=== PATIENT | female | born 1995 | race Caucasian/White ===

== ENCOUNTER 2019-08-24 06:48 | Emergency (ER) | payer OTHER, MEDICAID, SELFPAY ==
[2019-08-24 06:51] VITALS: BMI 36.8
[2019-08-24 06:56] VITALS: BP 143/89; PULSE 118; RESP 18; TEMP 36.8; O2SAT 100
--- NOTE | 2019-08-24 07:01 | ED_ITS ---
HPI - General Adult General: Chief complaint: General Medical Stated complaint: Chest Pain Time Seen by Provider: 08/24/19 07:01 History of Present Illness: HPI narrative: 23-year-old female presents after 2 days of what she describes as just not feeling well states her body aches all over she denies any cough occasionally she has some shortness of breath. She states she has chronic intermittent abdominal pain that has not really changed in character at all. She does take medicine for it but does not recall the name. She denies any vomiting no hematochezia or melena she has had a few loose stools last week but that seems to have resolved. She denies any productive cough. No dysuria urgency or frequency. Onset (ago): day(s) (2) Location: chest, abdomen, upper extremity and lower extremity Radiation: non-radiation Severity: moderate Quality: other (Vague discomfort patient has difficulty characterizing) Pain Consistency: intermittent Relieving factors: none Associated symptoms: Reports cough, dyspnea (Mild), malaise, nausea and short of breath; Deny chest pain, fevers/chills, headache(s), rash or vomiting Treatments prior to arrival: none Review of Systems Const: Reports: malaise ENMT: Denies: throat pain, ear pain, nasal discharge or nasal congestion Card: Denies: chest pain, edema, shortness of breath on exertion or shortness of breath when lying down Resp: Reports: shortness of breath (Mild) GI: Reports: nausea; Denies: vomiting : Denies: flank pain, difficulty urinating, painful urination, urinary frequency or urinary urgency Skin/Breast: Denies: rash or itching Neuro: Denies: headache PFSH ED PFSH: Statuses (acute, chronic, etc) shown below reflect problem list status as previously entered and may not be historically accurate Surgical History History of dental surgery (Acute) Social History Smoking and tobacco status: never smoked Female Reproductive History: Date of last menstrual period: 04/02/16 Physical Exam Const: COMMON NORMALS: no apparent distress GENERAL APPEARANCE: cooperative and comfortable ORIENTATION/CONSCIOUSNESS: Yes awake, Yes oriented to person, Yes oriented to place and Yes oriented to time HENMT: COMMON NORMALS: normocephalic, head/scalp atraumatic, hearing grossly normal bilaterally, external ears normal, EAC's normal, TM's normal bilaterally, nasal mucous membranes and turbinates normal, moist oral mucous membranes and oropharynx normal HEAD & SCALP: normocephalic and atraumatic NOSE: nasal mucous membranes and turbinates normal EXTERNAL EAR: Yes external ears normal EXTERNAL AUDITORY CANAL: EAC's normal TYMPANIC MEMBRANE: TM's normal b ilaterally Eye: COMMON NORMALS: PERRL, EOMs intact bilaterally, conjunctivae normal and no scleral icterus CONJUNCTIVA: Yes conjunctivae normal PUPIL: Yes PERRL Neck/C-Spine: COMMON NORMALS: full ROM, no lymphadenopathy, supple and no JVD Lymph: LYMPHATIC: no lymphadenopathy noted and no lymphedema noted Resp: COMMON NORMALS: normal respiratory effort, no retractions, no use of accessory muscles and clear to auscultation bilaterally AUSCULTATION: clear to auscultation bilaterally Cardio: COMMON NORMALS: no JVD, regular rate, regular rhythm and no murmurs RATE: regular rate RHYTHM: regular rhythm GI: COMMON NORMALS: soft to palpation and no hepatosplenomegaly AUSCULTATIO N: Yes normoactive bowel sounds PALPATION: Yes soft, No tender, No guarding and Yes no hepatosplenomegaly Extremity: COMMON NORMALS: normal to inspection, normal capillary refill, no clubbing, cyanosis or edema, no calf tenderness and no pedal edema Neuro: SENSORIUM/ORIENTATION: Yes oriented to person, Yes oriented to place and Yes oriented to time Skin: COMMON NORMALS: no rashes or lesions noted GENERAL SKIN EXAM: no rashes or lesions noted Course Vital Signs: Vital signs: Vital Signs Temperature 98.3 F 08/24/19 06:56 Pulse Rate 118 H 08/24/19 08:59 Respiratory Rate 16 08/24/19 08:59 Blood Pressure 127/78 08/24/19 08:59 Pulse Oximetry 97 08/24/19 08:59 [facility] - General Adult Lab Data: Labs: Lab Results 08/24/19 08/24/19 08/24/19 Range/Units 07:02 07:02 07:24 WBC 6.4 (4.0-10.0) 10^3/ uL RBC 4.92 (4.1-5.3) 10^6/u L Hgb 14.7 (11.5-15.3) g/dL Hct 44.1 (37.0-47.0) % MCV 89.6 (81-99) fL MCH 29.9 (28.0-34.0) pg MCHC 33.3 (30.0-36.0) g/dL RDW 11.8 L (12.1-15.1) % Plt Count 369 (130-400) 10^3/c mm MPV 9.4 (7.4-10.4) fL Neut % (Auto) 47.6 % Lymph % (Auto) 38.9 % [place] % (Auto) 8.2 % Eos % (Auto) 4.4 % Baso % (Auto) 0.6 % Neut # (Auto) 3.0 (1.8-7.7) 10^3/u L Lymph # (Auto) 2.5 (0.8-4.8) 10^3/u L [place] # (Auto) 0.5 (0.2-0.9) 10^3/u L Eos # (Auto) 0.3 (0.0-0.8) 10^3/u L Baso # (Auto) 0.0 (0.0-0.1) 10^3/u L Nucleated RBC % (a uto) 0 % Nucleated RBCs # 0.0 /100WBC Sodium 138 (136-145) mmol/L Potassium 3.7 (3.5-5.1) mmol/L Chloride 101 (98-107) mmol/L Carbon Dioxide 22 (22-29) mmol/L Anion Gap 18.7 (5-19) BUN 12 (6-20) mg/dL Creatinine 0.6 (0.5-0.9) mg/dL GFR Calculation 125.0 (90-130) mL/min Glucose 120 H (74-109) mg/dL Calcium 10.6 H (8.6-10.0) mg/Dl Total Bilirubin 0.5 (0.15-1.2) mg/dL AST 37 H (0-32) U/L ALT 77 H (0-33) U/L Alkaline Phosphata se 64 (35-105) IU/L Total Protein 7.5 (6.6-8.7) g/dL Albumin 5.4 H (3.5-5.2) g/dL Globulin 2.1 (1.3-4.6) g/dL HCG, Qual (Negative) Urine Color (Yellow) Urine Appearance (CLEAR) Urine pH (5-7) Ur Specific Gravit y (1.005-1.030) Urine Protein (Negative) Urine Glucose (UA) (Normal) Urine Ketones (Negative) Urine Occult Blood (Negative) Urine Nitrate (Negative) Urine Bilirubin (NEGATIVE) Urine Urobilinogen (Negative) mg/dL Ur Leukocyte [place] ase (Negative) Influenza Type A A g Negative (Negative) POC Influenza B Ag Negative (Negative) 08/24/19 08/24/19 Range/Units 07:53 07:53 WBC (4.0-10.0) 10^3/ uL RBC (4.1-5.3) 10^6/u L Hgb (11.5-15.3) g/dL Hct (37.0-47.0) % MCV (81-99) fL MCH (28.0-34.0) pg MCHC (30.0-36.0) g/dL RDW (12.1-15.1) % Plt Count (130-400) 10^3/c mm MPV (7.4-10.4) fL Neut % (Auto) % Lymph % (Auto) % [place] % (Auto) % Eos % (Auto) % Baso % (Auto) % Neut # (Auto) (1.8-7.7) 10^3/u L Lymph # (Auto) (0.8-4.8) 10^3/u L [place] # (Auto) (0.2-0.9) 10^3/u L Eos # (Auto) (0.0-0.8) 10^3/u L Baso # (Auto) (0.0-0.1) 10^3/u L Nucleated RBC % (a uto) % Nucleated RBCs # /100WBC Sodium (136-145) mmol/L Potassium (3.5-5.1) mmol/L Chloride (98-107) mmol/L Carbon Dioxide (22-29) mmol/L Anion Gap (5-19) BUN (6-20) mg/dL Creatinine (0.5-0.9) mg/dL GFR Calculation (90-130) mL/min Glucose (74-109) mg/dL Calcium (8.6-10.0) mg/Dl Total Bilirubin (0.15-1.2) mg/dL AST (0-32) U/L ALT (0-33) U/L Alkaline Phosphata se (35-105) IU/L Total Protein (6.6-8.7) g/dL Albumin (3.5-5.2) g/dL Globulin (1.3-4.6) g/dL HCG, Qual Negative (Negative) Urine Color Yellow (Yellow) Urine Appearance Clear (CLEAR) Urine pH 5.0 (5-7) Ur Specific Gravit y 1.010 (1.005-1.030) Urine Protein Neg (Negative) Urine Glucose (UA) Norm (Normal) Urine Ketones Negative (Negative) Urine Occult Blood Neg (Negative) Urine Nitrate Negative (Negative) Urine Bilirubin Neg (NEGATIVE) Urine Urobilinogen Norm (Negative) mg/dL Ur Leukocyte [place] ase Negative (Negative) Influenza Type A A g (Negative) POC Influenza B Ag (Negative) Discharge Plan Discharge Patient Disposition: Home, Self-Care Clinical Impression: Gastroenteritis Condition: Stable Prescriptions: New promethazine 12.5 mg tablet 12.5 mg PO Q6H PRN (Reason: nausea and vomiting) Qty: 10 RF: 0 No Action dicyclomine 20 mg tablet 20 mg PO QID PRN (Reason: Diarrhea) RF: 0 Discharge Orders: Discharge Order (Routine); Ordered 08/24/19 Ordered By: Con Stout Referrals: [facility] [Other] Patient Instructions: Chest Pain - Noncardiac, Promethazine (By mouth) Activity Restrictions/Additional Instructions: Return if worsens advance diet slowly push fluids if not improving follow-up either in the emergency room or with your primary care doctor Interventions: ED Discharge Assessment Last Done: 08/24/19 08:59 Discharge Date/Time: 08/24/19 09:06 Coding Level of Care Code ED Supervisor [place] for Isidro James Exam Problem Focused
--- NOTE | 2019-08-24 07:08 | XR_ITS ---
WS: [id number] PORTABLE CHEST HISTORY: dyspnea COMPARISON: None available. Lungs are clear and well expanded. No pleural effusion or pneumothorax. Cardiac size: Normal. Mediastinum/Aorta: Normal mediastinum. No osseous abnormality seen. XR/XR chest 1V portable [id number] IMPRESSION: Unremarkable portable chest.
[2019-08-24 07:16] LABS: Basophils % 0.6 %; Eosinophils # 0.3 10^3/uL (0.0-0.8); Eosinophils % 4.4 %; Hematocrit 44.1 % (37.0-47.0); Hemoglobin 14.7 g/dL (11.5-15.3); Lymphocytes # 2.5 10^3/uL (0.8-4.8); Lymphocytes % 38.9 %; Mean Corpuscular HGB Conc 33.3 g/dL (30.0-36.0); Mean Corpuscular Hemoglobin 29.9 pg (28.0-34.0); Mean Corpuscular Volume 89.6 fL (81-99); Mean Platelet Volume 9.4 fL (7.4-10.4); Monocytes # 0.5 10^3/uL (0.2-0.9); Monocytes % 8.2 %; Neutrophils % 47.6 %; Nucleated Red Blood Cells % 0 %; Platelet Count 369 10^3/cmm (130-400); Red Blood Count 4.92 10^6/uL (4.1-5.3); Red Cell Distribution Width 11.8 % (12.1-15.1); White Blood Count 6.4 10^3/uL (4.0-10.0)
--- NOTE | 2019-08-24 07:24 | PC.NURSE ---
Xray performed at bedside. Flu swab obtained.
[2019-08-24] MEDS: sodium chloride 0.9% 1,000 ML 999 ML IV (07:25)
[2019-08-24 07:26] VITALS: BP 123/91; PULSE 112; RESP 16; O2SAT 95
[2019-08-24 07:29] LABS: Alanine Aminotransferase 77 U/L (0-33); Albumin Level 5.4 g/dL (3.5-5.2); Alkaline Phosphatase 64 IU/L (35-105); Anion Gap 18.7 (5-19); Aspartate Amino Transferase 37 U/L (0-32); Blood Urea Nitrogen 12 mg/dL (6-20); Calcium 10.6 mg/Dl (8.6-10.0); Carbon Dioxide 22 mmol/L (22-29); Chloride 101 mmol/L (98-107); Globulin 2.1 g/dL (1.3-4.6); Glucose 120 mg/dL (74-109); Potassium 3.7 mmol/L (3.5-5.1); Sodium 138 mmol/L (136-145); Total Bilirubin 0.5 mg/dL (0.15-1.2); Total Protein 7.5 g/dL (6.6-8.7)
[2019-08-24 08:02] VITALS: BP 113/65; PULSE 108; RESP 16; O2SAT 98
[2019-08-24 08:02] LABS: HCG Qualitative Urine. Negative (Negative)
[2019-08-24 08:03] LABS: Add Urine Microscopic? NO
[2019-08-24 08:05] LABS: Influenza A by IFA Negative (Negative); Influenza B by IFA Negative (Negative)
[2019-08-24 08:21] LABS: Bilirubin Urine Neg (NEGATIVE); Blood Urine Neg (Negative); Glucose Urine UA Norm (Normal); Ketones Urine Negative (Negative); Leukocyte Esterase Urine Negative (Negative); Nitrate Urine Negative (Negative); Protein Urine Neg (Negative); Urine Appearance Clear (CLEAR); Urine Color Yellow (Yellow); Urobilinogen Urine Norm (Negative)
[2019-08-24 08:44] VITALS: BP 127/78; PULSE 101; RESP 16; O2SAT 98
[2019-08-24 08:59] VITALS: BP 127/78; PULSE 118; RESP 16; O2SAT 97
--- NOTE | 2019-08-24 10:06 | ECG_ITS ---
Measurements Intervals [place] Rate: 110 P: 9 NC: 159 QRS: 81 QRSD: 85 T: 11 QT: 328 QTc: 445 SINUS TACHYCARDIA NONSPECIFIC T-WAVE ABNORMALITY ABNORMAL RHYTHM ECG No previous ECG available for comparison Electronically Signed On 08-24-2019 15:29:03 OCCUPATIONAL WORK EXPERIENCE TEACHER by Shemar Simon M.D. [email or web address]
== END 2019-08-24 09:06 | disposition home or self-care (01) ==
PROVIDERS: Emergency Provider Family Medicine
DX: K52.9 Noninfective gastroenteritis and colitis, unspecified (principal)
CPT/HCPCS: 36415; 71045; 80053; 81003; 81025; 85025; 87804; 93005; 96360; 99283; A9270; J7030

== ENCOUNTER → 2019-09-28 08:14 | Outpatient (BNVA) | payer OTHER, MEDICAID, SELFPAY | PROVIDERS: Visit Provider Obstetrics & Gynecology | DX: N93.9 Abnormal uterine and vaginal bleeding, unspecified (principal) | CPT/HCPCS: 76830 ==

== ENCOUNTER → 2019-10-03 15:20 | Outpatient (BNVA) | payer MEDICAID, SELFPAY | PROVIDERS: Visit Provider Obstetrics & Gynecology | DX: E28.2 Polycystic ovarian syndrome (principal) | CPT/HCPCS: 83001; 84146; 84702 ==

== ENCOUNTER 2020-05-06 18:44 | Emergency (ER) | payer MEDICAID, SELFPAY ==
--- NOTE | 2020-05-06 18:57 | XR_ITS ---
WS: [id number] XR ankle RT min 3V* [id number] REASON FOR EXAM: injury FINDINGS: There is soft tissue swelling of the right ankle with no radiopaque foreign body identified within th e soft The ankle joint alignment is anatomic. There is no fracture identified. XR/XR ankle RT min 3V* [id number] IMPRESSION: Soft tissue swelling with no other focal abnormality identified.
[2020-05-06 19:16] VITALS: BP 147/90; PULSE 104; RESP 18; TEMP 36.7; O2SAT 100; BMI 39.4
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
[2020-05-06] MEDS: HYDROcodone-acetaminophen 7.5-325 mg Tablet 1 TAB PO (19:43)
[2020-05-06 20:19] VITALS: BP 124/85; PULSE 108; O2SAT 97
--- NOTE | 2020-05-07 09:00 | DCPLANNER ---
group exercise manager had message to schedule a follow up appointment for patient with ortho. group exercise manager called the ortho clinic, spoke with Pat, gave clinic patients information. group exercise manager was told that patients information would be printed and reviewed. Clinic will call patient with appointment information.
--- NOTE | 2020-05-08 10:56 | DCPLANNER ---
Pat from ortho called porter sample case and was told that patient is to follow up with primary care this week, and if patient is still having pain at the end of the week than patient can have primary care refer patient back to ortho. food production manager was told that clinic called patient and explained this to patient.
== END 2020-05-06 20:19 | disposition home or self-care (01) ==
PROVIDERS: Emergency Provider Emergency Medicine
DX: S93.401A Sprain of unspecified ligament of right ankle, initial encounter (principal); V89.2XXA Person injured in unspecified motor-vehicle accident, traffic, initial encounter
CPT/HCPCS: 12345; 29515; 73610; 99281; 99283; E0114